=== PATIENT | male | born 1995 | race Caucasian/White ===

== ENCOUNTER → 2018-05-14 | Outpatient (CLI) | payer SELFPAY | LOC: M WUC 16:39 | DX: S60.451A Superficial foreign body of left index finger, initial encounter (principal); Y92.89 Other specified places as the place of occurrence of the external cause; Y93.89 Activity, other specified; Y99.8 Other external cause status; X58.XXXA Exposure to other specified factors, initial encounter | CPT/HCPCS: 73140 ==